=== PATIENT | female | born 1950 | race African-American/Black ===

== ENCOUNTER 2024-11-04 12:15 | Inpatient (IN) | payer OTHER ==
[2024-11-04 14:28] LABS: BASO % 0.9 % (0-2.0); EOS % 3.6 % (0-4.5); HEMATOCRIT 40.9 % (32.4-45.2); HEMOGLOBIN 12.1 GM/dL (10.7-15.3); LYMPH % 33.8 % (8-40); MCH 23.9 pg (25.7-33.7); MCHC 29.6 g/dl (32.0-36.0); MEAN CELL VOLUME 80.7 fl (80-96); MEAN PLT VOLUME 10.5 fl (7.5-11.1); MONO % 14.1 % (3.8-10.2); NEUT % 47.6 % (42.8-82.8); PLATELET COUNT 316 10^3/uL (134-434); RBC 5.06 M/mm3 (3.60-5.2); RDW 20.6 % (11.6-15.6); WHITE BLOOD COUNT 8.6 K/mm3 (4.0-10.0)
[2024-11-04 14:37] LABS: INR 1.04 (0.83-1.09)
[2024-11-04 14:39] LABS: ACTIVATED PTT 33.9 SECONDS (25.2-36.5)
[2024-11-04 14:55] LABS: ANISOCYTOSIS 1+; MACROCYTOSIS 0
[2024-11-04 14:57] LABS: CHLORIDE 104 mmol/L (98-107); SODIUM 135 mmol/L (136-145)
[2024-11-04 14:58] LABS: ALBUMIN 3.2 g/dl (3.4-5.0); BLOOD UREA NITROGEN 17.2 mg/dL (7-18); CALCIUM 10.7 mg/dL (8.5-10.1); CO2 29 mmol/L (21-32); GLUCOSE,RANDOM 98 mg/dL (74-106)
[2024-11-04 15:01] LABS: CREATININE 0.7 mg/dL (0.55-1.3); SGOT/AST 73 U/L (15-37); SGPT/ALT 41 U/L (13-61)
[2024-11-04 15:03] LABS: BILIRUBIN,TOTAL 0.4 mg/dL (0.2-1); TOT PROT 7.7 g/dl (6.4-8.2)
[2024-11-04 15:04] LABS: ALK PHOS 119 U/L (45-117)
[2024-11-04 15:08] LABS: ANION GAP 3 mmol/L (4-13)
[2024-11-04 17:01] LABS: POTASSIUM 4.5 mmol/L (3.5-5.1)
[2024-11-04 17:02] LABS: CALCIUM 10.7 mg/dL (8.5-10.1)
[2024-11-04 17:03] LABS: BLOOD UREA NITROGEN 16.4 mg/dL (7-18)
[2024-11-04 17:06] LABS: CREATININE 0.6 mg/dL (0.55-1.3)
[2024-11-04] MEDS: DEXTROSE 5%-0.45% SALINE 1,000 ML IV SCH (18:09)
[2024-11-04 21:06] VITALS: BMI 27.8
[2024-11-05 08:33] LABS: HEMATOCRIT 37.1 % (32.4-45.2); HEMOGLOBIN 11.2 GM/dL (10.7-15.3); MCH 24.2 pg (25.7-33.7); MCHC 30.3 g/dl (32.0-36.0); MEAN CELL VOLUME 79.8 fl (80-96); MEAN PLT VOLUME 10.7 fl (7.5-11.1); PLATELET COUNT 297 10^3/uL (134-434); RBC 4.65 M/mm3 (3.60-5.2); RDW 20.4 % (11.6-15.6); WHITE BLOOD COUNT 8.4 K/mm3 (4.0-10.0)
[2024-11-05 09:19] LABS: ALBUMIN 3.2 g/dl (3.4-5.0); CALCIUM 10.5 mg/dL (8.5-10.1); MAGNESIUM 1.9 mg/dL (1.8-2.4)
[2024-11-05 09:20] LABS: BLOOD UREA NITROGEN 13.1 mg/dL (7-18)
[2024-11-05 09:22] LABS: CREATININE 0.7 mg/dL (0.55-1.3); PHOSPHOROUS 3.3 mg/dL (2.5-4.9)
[2024-11-05 09:24] LABS: TOT PROT 6.9 g/dl (6.4-8.2)
[2024-11-05 09:25] LABS: BILIRUBIN,TOTAL 0.6 mg/dL (0.2-1)
[2024-11-05] MEDS: AMANTADINE HCL 100MG/10 ML UNIT DOSE CUPS GT SCH (09:49)
[2024-11-05] MEDS: ENOXAPARIN NA (PORCINE) 40 MG/0.4 ML DISP.SYRIN SQ SCH (09:49)
[2024-11-05] MEDS: DONEPEZIL HCL 5 MG TABLET (FP) GT SCH (09:50)
[2024-11-05] MEDS: MIRTAZAPINE 15 MG TABLET (FP) GT SCH (09:50)
[2024-11-05] MEDS: LOSARTAN POTASSIUM 50 MG TABLET GT SCH (09:50)
[2024-11-05 19:55] VITALS: RESP 18
[2024-11-06] MEDS: DEXTROSE 5%-NORMAL SALINE 1,000 ML IV SCH (09:48)
[2024-11-06 09:51] LABS: BASO % 1.6 % (0-2.0); EOS % 4.3 % (0-4.5); HEMATOCRIT 39.6 % (32.4-45.2); LYMPH % 36.5 % (8-40); MCH 24.1 pg (25.7-33.7); MCHC 30.2 g/dl (32.0-36.0); MEAN CELL VOLUME 79.8 fl (80-96); MEAN PLT VOLUME 10.3 fl (7.5-11.1); NEUT % 45.6 % (42.8-82.8); PLATELET COUNT 305 10^3/uL (134-434); RBC 4.96 M/mm3 (3.60-5.2); RDW 20.4 % (11.6-15.6); WHITE BLOOD COUNT 7.9 K/mm3 (4.0-10.0)
[2024-11-06 10:10] LABS: POTASSIUM 3.6 mmol/L (3.5-5.1)
[2024-11-06 10:13] LABS: CALCIUM 10.6 mg/dL (8.5-10.1)
[2024-11-06 10:14] LABS: ALBUMIN 3.2 g/dl (3.4-5.0); BLOOD UREA NITROGEN 7.1 mg/dL (7-18); MAGNESIUM 1.7 mg/dL (1.8-2.4)
[2024-11-06 10:17] LABS: CREATININE 0.6 mg/dL (0.55-1.3); PHOSPHOROUS 3.4 mg/dL (2.5-4.9)
[2024-11-06 10:18] LABS: TOT PROT 7.3 g/dl (6.4-8.2)
[2024-11-07 09:22] LABS: BASO % 1.1 % (0-2.0); EOS % 1.3 % (0-4.5); HEMATOCRIT 38.1 % (32.4-45.2); LYMPH % 29.5 % (8-40); MCH 24.7 pg (25.7-33.7); MCHC 31.4 g/dl (32.0-36.0); MEAN CELL VOLUME 78.5 fl (80-96); MEAN PLT VOLUME 10.6 fl (7.5-11.1); MONO % 11.2 % (3.8-10.2); NEUT % 56.9 % (42.8-82.8); PLATELET COUNT 299 10^3/uL (134-434); RBC 4.86 M/mm3 (3.60-5.2); RDW 20.6 % (11.6-15.6); WHITE BLOOD COUNT 7.2 K/mm3 (4.0-10.0)
[2024-11-07 09:41] LABS: INR 1.16 (0.83-1.09)
[2024-11-07 09:53] LABS: POTASSIUM 3.6 mmol/L (3.5-5.1)
[2024-11-07 09:55] LABS: ALBUMIN 3.2 g/dl (3.4-5.0); BLOOD UREA NITROGEN 9.7 mg/dL (7-18)
[2024-11-07 09:56] LABS: CALCIUM 10.5 mg/dL (8.5-10.1)
[2024-11-07 09:58] LABS: CREATININE 0.6 mg/dL (0.55-1.3)
[2024-11-07 10:00] LABS: BILIRUBIN,TOTAL 0.6 mg/dL (0.2-1); TOT PROT 7.1 g/dl (6.4-8.2)
[2024-11-07] MEDS: IOHEXOL (OMNIPAQUE IV) 350 MG/ML - 100 ML BOTTLE PEG ONE (15:32)
[2024-11-08 04:34] VITALS: BP 156/89; PULSE 85; TEMP 97.9
[2024-11-08 09:53] LABS: INR 1.16 (0.83-1.09); PROTHROMBIN TIME (PATIENT) 13.3 SEC (9.7-13.0)
[2024-11-08 10:01] LABS: BASO % 1.2 % (0-2.0); EOS % 2.2 % (0-4.5); HEMATOCRIT 38.8 % (32.4-45.2); HEMOGLOBIN 11.9 GM/dL (10.7-15.3); LYMPH % 24.2 % (8-40); MCH 24.7 pg (25.7-33.7); MCHC 30.6 g/dl (32.0-36.0); MEAN CELL VOLUME 80.7 fl (80-96); MEAN PLT VOLUME 10.7 fl (7.5-11.1); MONO % 11.6 % (3.8-10.2); NEUT % 60.8 % (42.8-82.8); PLATELET COUNT 292 10^3/uL (134-434); RDW 20.6 % (11.6-15.6); WHITE BLOOD COUNT 7.3 K/mm3 (4.0-10.0)
[2024-11-08 11:08] LABS: POTASSIUM 3.4 mmol/L (3.5-5.1)
[2024-11-08 11:14] LABS: ALBUMIN 3.2 g/dl (3.4-5.0); BLOOD UREA NITROGEN 6.6 mg/dL (7-18); CALCIUM 10.3 mg/dL (8.5-10.1)
[2024-11-08 11:17] LABS: CREATININE 0.6 mg/dL (0.55-1.3)
[2024-11-08 11:19] LABS: BILIRUBIN,TOTAL 0.6 mg/dL (0.2-1)
[2024-11-08 11:51] LABS: TOT PROT 7.1 g/dl (6.4-8.2)
[2024-11-08 12:04] LABS: ANISOCYTOSIS 2+; MACROCYTOSIS 0; OVALOCYTE 1+
[2024-11-09 13:08] LABS: PARATHYROID HORM INTACT 41 pg/mL (15-65)
== END 2024-11-08 12:37 | DRG 394 ==
LOC: JER 12:15 → JERBED 17:56 → J6S 19:57 → OBSVTOIN 11-06 07:30
PROVIDERS: ADMIT Internal Medicine; ATTEND Internal Medicine
DX: Z43.1 Encounter for attention to gastrostomy (principal); I69.354 Hemiplegia and hemiparesis following cerebral infarction affecting left non-dominant side; E83.52 Hypercalcemia; F03.90 Unspecified dementia, unspecified severity, without behavioral disturbance, psychotic disturbance, mood disturbance, and anxiety; F32.9 Major depressive disorder, single episode, unspecified; I10 Essential (primary) hypertension
CPT/HCPCS: 36415; 71045-TC-FY; 73610-TC-LT-FY; 73630-TC-LT; 74018-TC-FY; 74176-TC; 80048; 80053; 82310; 82962; 83735; 83970; 84100; 85025; 85027; 85610; 85730; 86850; 86900; 86901; 93005; 93010; 99285-25; G0378